=== PATIENT | female | born 1955 | race Caucasian/White ===

== ENCOUNTER 2019-12-13 00:48 | Observation (INO) ==
[2019-12-13] MEDS ORDERED: CARDIZEM INJ 50 MG VIAL IVP ONE (01:08)
[2019-12-13 01:26] LABS: BASOPHILS # (AUTO) 0.1 X10^3/uL (0.0-0.1); BASOPHILS % (AUTO) 0.8 % (0.2-1.0); EOSINOPHILS % (AUTO) 0.5 % (0.9-2.9); HEMATOCRIT 39.9 % (36.0-47.0); HEMOGLOBIN 13.3 g/dL (12.0-16.0); LYMPHOCYTES # (AUTO) 1.6 X10^3/uL (1.3-2.9); LYMPHOCYTES % (AUTO) 18.9 % (21.0-51.0); MEAN CORPUSCULAR HEMOGLOBIN 28.2 pg (27.0-34.0); MEAN CORPUSCULAR HGB CONC 33.3 g/dL (33.0-35.0); MEAN CORPUSCULAR VOLUME 84.5 fL (80.0-100.0); MEAN PLATELET VOLUME 8.7 fL (7.4-11.0); MONOCYTES # (AUTO) 0.7 x10^3/uL (0.3-0.8); MONOCYTES % (AUTO) 8.7 % (0.0-13.0); NEUTROPHILS # (AUTO) 5.9 x10^3/uL (2.2-4.8); NEUTROPHILS % (AUTO) 71.1 % (42.0-75.0); PLATELET COUNT 337 X10^3/uL (150.0-450.0); RED BLOOD COUNT 4.72 X10^6/uL (3.5-5.4); RED CELL DISTRIBUTION WIDTH 13.5 % (11.6-16.5); WHITE BLOOD COUNT 8.3 X10^3/uL (3.6-10.0)
[2019-12-13 01:39] LABS: BLOOD UREA NITROGEN 19 mg/dL (7-18); CALCIUM 9.3 mg/dL (8.5-10.1); CARBON DIOXIDE 31.9 mmol/L (21-32); CHLORIDE 101 mmol/L (98-107); COR NA(FOR HYPERGLY) 139 mmol/L (136-145); CREATININE 0.95 mg/dL (0.55-1.02); SODIUM 138 mmol/L (136-145); TROPONIN I < 0.02 ng/mL (0-1.5); eGFR NON BLACK RACES > 60 (>60)
[2019-12-13 01:44] LABS: ALANINE AMINOTRANSFERASE 15 Units/L (12-78); ALBUMIN 3.5 g/dL (3.4-5.0); ALKALINE PHOSPHATASE 88 Units/L (46-116); ASPARTATE AMINO TRANSFERASE 12 Units/L (15-37); CKMB % 2.1 % (<4); CREATINE KINASE 47 Units/L (26-192); TOTAL PROTEIN 7.6 g/dL (6.4-8.2)
[2019-12-13] MEDS ORDERED: BENADRYL INJ 50 MG VIAL ONE (01:44)
[2019-12-13] MEDS ORDERED: CARDIZEM INJ 50 MG VIAL ONE (01:45)
[2019-12-13] MEDS ORDERED: NS 1000 ML 1,000 ML ONE (01:48)
[2019-12-13] MEDS ORDERED: BENADRYL INJ 50 MG VIAL IVP ONE (01:59)
[2019-12-13] MEDS ORDERED: ZOFRAN INJ 4 MG VIAL IVP ONE (02:40)
[2019-12-13] MEDS ORDERED: ZOFRAN INJ 4 MG VIAL ONE (02:43)
--- NOTE | 2019-12-13 02:45 | RAD ---
STUDY: FRONTAL VIEW CHESTCOMPARISON: NoneHISTORY: PATIENT STATES SHE FEELS HER HEART "RUNNING AWAY"; SHE STATES THAT SHE HAS A HX OF AFIB AND HER HEART RATE HAS BEEN HIGH AT HOME; SHE C/O SHORTNESS OF BREATHFINDINGS:No focal consolidation is seen.The heart size is within normal limitsThe mediastinum is unremarkable.There is no evidence of pleural effusion or gross pneumothorax.Trachea is midline.IMPRESSION:1. NO FOCAL CONSOLIDATION SEEN.2. THE HEART SIZE IS NORMAL.Electronically signed by: José Miguel King (Dec 13, 2019 02:44:26)
--- NOTE | 2019-12-13 02:50 | DR.GENAD ---
HPI Time Seen Time Seen by Provider: 12/13/19 01:06 Complaint/Symptoms Chief Complaint Doctors Comments: Patient is a 64-year-old female who presents to the emergency department for palpitations. She states that they started tonight around 9:00 o'clock and they woke her up. She has a history of A-fib and is on Eliquis. Patient states that she thought that palpitations would resolve but they did not which is why she came to [facility]. She states her heart rate has been in the 120s to 130s since 9:00 PM. The patient admits to shortness of breath with A-fib palpitations but not when she has no palpitations. Patient states that she otherwise has no chest pain, no dizziness, no other complaints. Nurses notes reviewed Nurses Notes Review: Yes Source History Provided: Patient ROS Review of Systems Constitutional: Fatigue Eyes: No Symptoms Reported ENTM: No Symptoms Reported Respiratoy: Short of Breath Cardiovascular: Palpitations Gastrointestinal/Abdominal: Nausea and Vomiting Genitourinary: No Symptoms Reported Neurological: No Symptoms Reported Musculoskeletal: No Symptoms Reported Integumentary: No Symptoms Reported Hematologic/Lymphatic: Swollen Glands Psychiatric: No Symptoms Reported All Other Systems: Reviewed and Negative PE Vital Signs Vitals: Temperature 98.3 F Pulse Rate 121 Respiratory Rate 17 Blood Pressure 164/82 O2 Sat by Pulse Oximetry 94 General General Appearance: Alert, Anxious and In Distress (moderate ) Head Head Exam: Normal Inspection, Atraumatic and Normocephalic Eyes Eye exam: Normal Appearance and EOMI ENT ENT Exam: Normal Exam and Normal Oropharynx Nose Exam: Normal Nose Exam Mouth Exam: Normal Inspection Neck Neck Exam: Normal Inspection and Full ROM Chest Chest Inspection: Normal Inspection and Symmetric Chest Wall Rise Respiratory Respiratory Exam: Normal Lung Sounds Bilat Respiratory Exam: Bilateral: Clear to Auscultation Cardiovascular Cardiovascular Exam: Tachycardia Abdominal Exam Abdominal Exam: Normal Inspection, Normal Bowel Sounds and Soft Extremities Extremities Exam: Normal Inspection and Full ROM Back Back Exam: Normal Inspection and Full ROM Neurologic Neurological Exam: Alert, Oriented X3, CN II-XII Intact and Normal Gait Psychiatric Psychiatric Exam: Normal Affect, Normal Mood and Anxious Skin Skin Exam: Warm, Dry, Intact and Normal Color MDM Differential Diagnosis Differential Diagnosis: AFIB w/ RVR vs ACS vs OH vs anxiety attack vs viral syn drome vs COURSE Treatment Treatment: 15mg diltiazem IVP Reevaluation 1st: Improved (01:30 ) 2nd: Worsened (02:35 pt is vomiting and having diarrhea ) 3rd: Improved (04:34 pt stable and states she feels better hr in 110's) Consultation Consultation Comments: Dr. Nelson @ 04:50 accept admission Education/Counseling Education/Counseling: Patient, Family, Education and Counseling Educated On: Treatment, Diagnosis, Prognosis and Needs for Follow Up ROR Labs Reviewed Laboratory Results Reviewed?: Yes Result Diagrams: 12/13/19 01:17 12/13/19 01:17 Laboratory: WBC 8.3 X10^3/uL (3.6-10.0) 12/13/19 01:17 RBC 4.72 X10^6/uL (3.5-5.4) 12/13/19 01:17 Hgb 13.3 g/dL (12.0-16.0) 12/13/19 01:17 Hct 39.9 % (36.0-47.0) 12/13/19 01:17 MCV 84.5 fL (80.0-100.0) 12/13/19 01:17 MCH 28.2 pg (27.0-34.0) 12/13/19 01:17 MCHC 33.3 g/dL (33.0-35.0) 12/13/19 01:17 RDW 13.5 % (11.6-16.5) 12/13/19 01:17 Plt Count 337 X10^3/uL (150.0-450.0) 12/13/19 01:17 MPV 8.7 fL (7.4-11.0) 12/13/19 01:17 Neut % (Auto) 71.1 % (42.0-75.0) 12/13/19 01:17 Lymph % (Auto) 18.9 % (21.0-51.0) L 12/13/19 01:17 Lewis % (Auto) 8.7 % (0.0-13.0) 12/13/19 01:17 Eos % (Auto) 0.5 % (0.9-2.9) L 12/13/19 01:17 Baso % (Auto) 0.8 % (0.2-1.0) 12/13/19 01:17 Neut # (Auto) 5.9 x10^3/uL (2.2-4.8) H 12/13/19 01:17 Lymph # (Auto) 1.6 X10^3/uL (1.3-2.9) 12/13/19 01:17 Lewis # (Auto) 0.7 x10^3/uL (0.3-0.8) 12/13/19 01:17 Eos # (Auto) 0.0 x10^3/uL (0.0-0.2) 12/13/19 01:17 Baso # (Auto) 0.1 X10^3/uL (0.0-0.1) 12/13/19 01:17 Absolute Nucleated RBC 0.0 /100WBC 12/13/19 01:17 Sodium 138 mmol/L (136-145) 12/13/19 01:17 Corrected Sodium 139 mmol/L (136-145) 12/13/19 01:17 Potassium 3.6 mmol/L (3.5-5.1) 12/13/19 01:17 Chloride 101 mmol/L (98-107) 12/13/19 01:17 Carbon Dioxide 31.9 mmol/L (21-32) 12/13/19 01:17 BUN 19 mg/dL (7-18) H 12/13/19 01:17 Creatinine 0.95 mg/dL (0.55-1.02) 12/13/19 01:17 Est GFR (MDRD) Af Amer > 60 (>60) 12/13/19 01:17 Est GFR (MDRD) Non-Af > 60 (>60) 12/13/19 01:17 Glucose 133 mg/dL (65-99) H 12/13/19 01:17 Calcium 9.3 mg/dL (8.5-10.1) 12/13/19 01:17 Corrected Calcium TNP 12/13/19 01:17 Total Bilirubin 0.60 mg/dL (0.2-1.0) 12/13/19 01:17 AST 12 Units/L (15-37) L 12/13/19 01:17 ALT 15 Units/L (12-78) 12/13/19 01:17 Alkaline Phosphatase 88 Units/L (46-116) 12/13/19 01:17 Creatine Kinase 47 Units/L (26-192) 12/13/19 01:17 CK-MB (CK-2) 1.0 ng/mL (0-4.0) 12/13/19 01:17 CK/CKMB % Calc 2.1 % (<4) 12/13/19 01:17 Troponin I < 0.02 ng/mL (0-1.5) 12/13/19 01:17 Total Protein 7.6 g/dL (6.4-8.2) 12/13/19 01:17 Albumin 3.5 g/dL (3.4-5.0) 12/13/19 01:17 Globulin 4.1 g/dL (2.5-4.5) 12/13/19 01:17 Albumin/Globulin Ratio 0.9 Ratio (1.1-2.1) L 12/13/19 01:17 XRAY X-ray Results: CXR: no focal consolidation seen heart is normal sized EKG Rate: 122 [place]: Normal Rhythm: ST Block: None Hypertrophy: LAE ST: Normal Opioid Opioid Risk Tool Total: 0 Total Score Risk Category: Low Risk Copyright: Bogdan FALK predicting aberrant behaviors Diagnosis Discharge Problem: Chest pain, rule out acute myocardial infarction, Sustained SVT, Intractable nausea and vomiting Narrative Support Text: Today the patient was seen in the emergency department. All labs, imaging, consults with other specialists, and procedures were d iscussed with the patient and or patients family. All emergent needs such as pain mgmt, medical mgmt, Procedures, or consultations were addressed. The care plan has been discussed with the patient and or patients family. Patient and or family stated agreement and understanding of risks and benefits of care plans. Instructions Instructions: Febrile Seizure Forms: Excuse From Work Patient Portal
[2019-12-13] MEDS ORDERED: REGLAN INJ 10 MG VIAL IVP ONE (03:53)
[2019-12-13] MEDS ORDERED: REGLAN INJ 10 MG VIAL ONE (03:54)
[2019-12-13] MEDS ORDERED: LOPRESSOR INJ 5 MG AMP IVP ONE (04:15)
[2019-12-13] MEDS ORDERED: LOPRESSOR INJ 5 MG AMP ONE (04:18)
[2019-12-13] MEDS: NS 1000 ML 1,000 ML IV SCH ×2 (04:44→13:00)
[2019-12-13] MEDS ORDERED: ZOFRAN INJ 4 MG VIAL IVP PRN (04:55)
[2019-12-13] MEDS ORDERED: NS 1000 ML 1,000 ML IV SCH (05:00)
[2019-12-13 05:30] LABS: BASOPHILS % (AUTO) 0.5 % (0.2-1.0); EOSINOPHILS % (AUTO) 0.1 % (0.9-2.9); HEMATOCRIT 39.8 % (36.0-47.0); HEMOGLOBIN 13.2 g/dL (12.0-16.0); LYMPHOCYTES # (AUTO) 1.5 X10^3/uL (1.3-2.9); LYMPHOCYTES % (AUTO) 17.1 % (21.0-51.0); MEAN CORPUSCULAR HEMOGLOBIN 28.4 pg (27.0-34.0); MEAN CORPUSCULAR HGB CONC 33.2 g/dL (33.0-35.0); MEAN CORPUSCULAR VOLUME 85.5 fL (80.0-100.0); MEAN PLATELET VOLUME 8.4 fL (7.4-11.0); MONOCYTES # (AUTO) 0.5 x10^3/uL (0.3-0.8); MONOCYTES % (AUTO) 5.9 % (0.0-13.0); NEUTROPHILS # (AUTO) 6.8 x10^3/uL (2.2-4.8); NEUTROPHILS % (AUTO) 76.4 % (42.0-75.0); PLATELET COUNT 337 X10^3/uL (150.0-450.0); RED BLOOD COUNT 4.65 X10^6/uL (3.5-5.4); RED CELL DISTRIBUTION WIDTH 13.7 % (11.6-16.5); WHITE BLOOD COUNT 8.8 X10^3/uL (3.6-10.0)
[2019-12-13 05:48] LABS: BILIRUBIN,URINE NEGATIVE (NEGATIVE); BLOOD/HEMOGLOBIN,URINE 2+ (NEGATIVE); GLUCOSE, URINE NEGATIVE (NEGATIVE); KETONES,URINE NEGATIVE (NEGATIVE); LEUKOCYTE ESTERASE ,URINE NEGATIVE (NEGATIVE); NITRITES,URINE NEGATIVE (NEGATIVE); PROTEIN,URINE NEGATIVE (NEGATIVE); UROBILINOGEN,URINE NORMAL (NORMAL)
[2019-12-13 05:50] LABS: ALANINE AMINOTRANSFERASE 18 Units/L (12-78); ALBUMIN 3.5 g/dL (3.4-5.0); ALKALINE PHOSPHATASE 87 Units/L (46-116); ASPARTATE AMINO TRANSFERASE 12 Units/L (15-37); BLOOD UREA NITROGEN 15 mg/dL (7-18); CALCIUM 8.8 mg/dL (8.5-10.1); CARBON DIOXIDE 29.3 mmol/L (21-32); CHLORIDE 102 mmol/L (98-107); COR NA(FOR HYPERGLY) 139 mmol/L (136-145); CREATININE 0.88 mg/dL (0.55-1.02); SODIUM 138 mmol/L (136-145); TOTAL PROTEIN 7.5 g/dL (6.4-8.2); eGFR NON BLACK RACES > 60 (>60)
[2019-12-13 05:56] LABS: COLOR,URINE STRAW (YELLOW)
[2019-12-13 05:57] LABS: APPEARANCE,URINE SLIGHTLY HAZY (CLEAR); BACTERIA,URINE NEGATIVE /HPF (NEGATIVE); SQUAMOUS EPITHELIAL CELL,UR RARE /HPF (NEGATIVE)
[2019-12-13 06:00] LABS: CKMB % 3.2 % (<4); CREATINE KINASE 50 Units/L (26-192); CREATINE KINASE MB 1.6 ng/mL (0-4.0); TROPONIN I < 0.02 ng/mL (0-1.5)
[2019-12-13 06:23] VITALS: BMI 37.0
[2019-12-13] MEDS ORDERED: K-DUR TAB 20 MEQ PO PRN (07:12)
[2019-12-13] MEDS ORDERED: KLOR-CON PO PRN (07:12)
[2019-12-13] MEDS ORDERED: K-RIDER 10 MEQ/NS 100 ML 10 MEQ/100 ML BAG IV PRN (07:12)
[2019-12-13] MEDS ORDERED: POTASSIUM CHLORIDE LIQ 20 MEQ UDC PO PRN (07:12)
[2019-12-13] MEDS ORDERED: POTASSIUM CHL 40 MEQ/NS 0.45% 500 ML IV PRN (07:12)
[2019-12-13] MEDS ORDERED: POTASSIUM CHL 60 MEQ/NS 0.45% 500 ML IV PRN (07:12)
[2019-12-13] MEDS ORDERED: MICRO K EXTEN CAP 10 MEQ PO PRN (07:12)
[2019-12-13] MEDS ORDERED: ELIQUIS PO SCH ×2 (09:00→09:30)
[2019-12-13] MEDS ORDERED: TYLENOL 325 MG TAB PO PRN (09:18)
[2019-12-13] MEDS ORDERED: PATIENT'S HOME MEDICATION (Diclofenac Sodium 75 MG) PO SCH (09:30)
[2019-12-13] MEDS ORDERED: CA CARB CA GLUC GLUCO PO SCH (09:30)
[2019-12-13] MEDS ORDERED: POTASSIUM GLUCONATE 99 MG PO SCH (09:30)
[2019-12-13] MEDS ORDERED: LANSOPRAZOLE 15 MG PO SCH (09:30)
[2019-12-13] MEDS ORDERED: PROPAFENONE 325 MG PO SCH (09:30)
[2019-12-13] MEDS ORDERED: HYDROCHLOROTHIAZIDE 25 MG TAB PO SCH (10:00)
[2019-12-13] MEDS: MAGNESIUM SULFATE 1 GRAM/100 mL PREMIX 2 G/200 ML BAG IV SCH ×2 (11:00→12:00)
[2019-12-13] MEDS ORDERED: PROTONIX TAB 40 MG PO SCH (11:00)
[2019-12-13 17:15] VITALS: BP 111/56
== END 2019-12-13 17:37 | disposition home or self-care (01) ==
LOC: ER 00:55 → MED/SURG 00:55
PROVIDERS: ADMIT Family Medicine; ATTEND Obstetrics & Gynecology Obstetrics
DX: R06.02 Shortness of breath; I48.91 Unspecified atrial fibrillation; Z79.01 Long term (current) use of anticoagulants; R11.2 Nausea with vomiting, unspecified; Z79.899 Other long term (current) drug therapy
CPT/HCPCS: 36415; 71010; 71045; 80053; 81001; 82550; 82553; 83735; 84484; 85025; 93005; 96365; 96367; 96374; 96375; 99284; A4222; G0378; J1200; J2405; J2765; J3475; J3490; J7030